=== PATIENT | male | born 1980 | race Caucasian/White ===

== ENCOUNTER 2017-06-12 14:32 | Emergency (ER) | payer OTHER ==
[~2017-06-12] VITALS: Ht 188 cm; Wt 103.8 kg
[2017-06-12] MEDS ORDERED: AUGMENTIN875 MG PO (16:17)
[2017-06-12 17:46] VITALS: BP 140/78
== END 2017-06-12 17:46 | disposition home or self-care (01) ==
LOC: RME 14:32 → EME 14:32 → RME 17:46
PROC: 3E0234Z Introduction of Serum, Toxoid and Vaccine into Muscle, Percutaneous Approach (ICD-10-PCS; principal; 2017-06-12)
DX: S61.233A Puncture wound without foreign body of left middle finger without damage to nail, initial encounter (principal); W27.0XXA Contact with workbench tool, initial encounter
CPT/HCPCS: 73140; 99281; 99284